=== PATIENT | female | born 1940 | race Caucasian/White ===

== ENCOUNTER 2025-07-27 18:17 | Emergency (ER) | payer MEDICARE, OTHER ==
[2025-07-27] MEDS ORDERED: Acetaminophen 325 MG TAB ONE (21:22)
== END 2025-07-27 21:27 | disposition home or self-care (01) ==
LOC: ERS 18:17
DX: M54.42 Lumbago with sciatica, left side (principal); M62.830 Muscle spasm of back; I10 Essential (primary) hypertension
CPT/HCPCS: 99283